=== PATIENT | female | born 1975 | race Caucasian/White ===

== ENCOUNTER 2021-02-22 13:06 | Emergency (ER) | payer MEDICAID ==
[~2021-02-22] VITALS: Ht 165.1 cm; Wt 150.0 kg
[2021-02-22] MEDS ORDERED: MECLIZINE 25MG TABLET PO ONE (15:15)
[2021-02-22] MEDS ORDERED: SODIUM CHLORIDE 0.9% 1,000 ML IV ONE (15:15)
[2021-02-22 15:25] LABS: BASOPHILS % 0.9 % (0.0-2.0); EOSINOPHILS % 0.2 % (0.0-5.0); HEMATOCRIT. 37.1 % (36.0-48.0); HEMOGLOBIN. 11.6 g/dL (12.0-16.0); LYMPHOCYTES % 17.3 % (20.0-50.0); MEAN CORPUSCULAR HEMOGLOBIN 24.9 pg (28.0-32.0); MEAN CORPUSCULAR VOLUME 79.7 fL (81.0-99.0); MEAN PLATELET VOLUME 9.8 fl (7.4-10.4); MONOCYTES % 4.9 % (2.0-8.0); NEUTROPHILS % 76.7 % (40.0-76.0); PLATELET 382 x1000/uL (130-400); RED BLOOD CELL COUNT 4.66 mill/uL (4.2-5.4); RED CELL DISTRIBUTION WIDTH 17.8 % (11.6-14.6)
[2021-02-22 15:34] LABS: HCG SCREEN NEGATIVE
[2021-02-22 16:04] LABS: CHLORIDE 109 mEq/L (98-107)
[2021-02-22 16:21] LABS: CLARITY URINE CLOUDY (CLEAR); COLOR URINE YELLOW (YELLOW); KETONES URINE TRACE (NEGATIVE); LEUKOCYTE ESTERASE URINE 2+ (NEGATIVE); NITRITE URINE NEGATIVE (NEGATIVE); OCCULT BLOOD URINE NEGATIVE (NEGATIVE); PROTEIN URINE NEGATIVE (NEGATIVE); SPECIFIC GRAVITY URINE 1.023 (1.005-1.030)
[2021-02-22] MEDS ORDERED: CEPH500C2 MT (17:13)
[2021-02-22] MEDS ORDERED: MECL-159 MT (17:13)
[2021-02-22 17:36] VITALS: BP 133/63
== END 2021-02-22 17:40 | disposition home or self-care (01) ==
LOC: ER 13:06
DX: R42 Dizziness and giddiness (principal); R00.0 Tachycardia, unspecified
CPT/HCPCS: 36415; 80053; 81003; 84484; 84703; 85025; 96360; 99283; J7030; J8597

== ENCOUNTER 2021-06-05 07:05 | Emergency (ER) | payer SELFPAY ==
[~2021-06-05] VITALS: Ht 160 cm; Wt 146.0 kg
[~2021-06-05 07:05] MED LIST: CEPH500C2 MT; MECL-159 MT
[2021-06-05 08:52] LABS: BASOPHILS % 1.2 % (0.0-2.0); EOSINOPHILS % 0.8 % (0.0-5.0); HEMOGLOBIN. 11.1 g/dL (12.0-16.0); LYMPHOCYTES % 18.3 % (20.0-50.0); MEAN CORPUSCULAR HEMOGLOBIN 24.5 pg (28.0-32.0); MEAN CORPUSCULAR VOLUME 77.4 fL (81.0-99.0); MEAN PLATELET VOLUME 8.5 fl (7.4-10.4); MONOCYTES % 5.7 % (2.0-8.0); PLATELET 342 x1000/uL (130-400); RED BLOOD CELL COUNT 4.52 mill/uL (4.2-5.4); RED CELL DISTRIBUTION WIDTH 16.8 % (11.6-14.6)
[2021-06-05 08:58] LABS: CHLORIDE 108 mEq/L (98-107)
[2021-06-05 09:06] LABS: HCG SCREEN NEGATIVE
[2021-06-05 09:25] LABS: CLARITY URINE CLEAR (CLEAR); KETONES URINE NEGATIVE (NEGATIVE); LEUKOCYTE ESTERASE URINE TRACE (NEGATIVE); NITRITE URINE NEGATIVE (NEGATIVE); OCCULT BLOOD URINE 3+ (NEGATIVE); PROTEIN URINE 2+ (NEGATIVE); SPECIFIC GRAVITY URINE 1.009 (1.005-1.030); UROBILINOGEN URINE 0.2 E.U./dL (0.2-1.0)
[2021-06-05 09:52] LABS: COLOR URINE BLOODY (YELLOW)
[2021-06-05] MEDS ORDERED: IOHEXOL-350 100 ML BOTTLE ONE (11:44)
[2021-06-05 12:49] VITALS: BP 123/53
== END 2021-06-05 12:51 | disposition home or self-care (01) ==
LOC: ER 08:03
DX: R00.2 Palpitations (principal); R06.02 Shortness of breath
CPT/HCPCS: 36415; 71045; 71275; 80053; 81003; 81025; 83880; 84484; 84703; 85025; 85379; 93005; 99285; Q9967